=== PATIENT | male | born 1970 | race Caucasian/White ===

== ENCOUNTER 2019-08-08 13:47 | Emergency (ER) | payer OTHER, SELFPAY ==
[2019-08-08 13:50] VITALS: BP 159/88; PULSE 63; RESP 18; TEMP 37.2; O2SAT 97; BMI 25.0
--- NOTE | 2019-08-08 14:54 | ED.EAR ---
HPI - Ear Problem <DEONTE Mario - Last Filed: 08/08/19 19:42> General Chief complaint: Ear Stated complaint: left ear pain/loss of hearing x7 day Time Seen by Provider: 08/08/19 14:27 Source: patient Mode of arrival: ambulatory Limitations: no limitations History of Present Illness HPI Narrative: 49-year-old male presents emergency department today complaining of decreased hearing in his left ear for the past week. He states he has tried 2-3 wax removal kits without success. He states it feels like he is on an airplane and his ears need to pop but they wont. Patient denies any recent illness, sore throat, rhinorrhea, recent travel, ear pain, fevers, chills, chest pain, shortness of breath, abdominal pain, nausea, vomiting, or diarrhea Review of Systems <DEONTE Mario - Last Filed: 08/08/19 19:42> Review of Systems Narrative: Insert ear ROS REVIEW OF SYSTEMS: GENERAL: Denies fever or chills. HENT: No head trauma. Reports hearing loss to left ear, see HPI. EYES: No loss of vision, double vision, eye pain, or irritation. CARDIOVASCULAR: No chest pain or syncope. RESPIRATORY: No shortness of breath or cough. GASTROINTESTINAL: No nausea, vomiting, diarrhea, or constipation. GENITOURINARY: No flank pain or dysuria. MUSCULOSKELETAL: No pain, weakness, or deformities. INTEGUMENTARY: No rash, lesions, or pruritus. NEURO: No numbness, tingling, memory loss, or confusion. PSYCH: No behavior or mood changes. PFSH <DEONTE Mario - Last Filed: 08/08/19 19:42> Medical History No significant past surgical history (Acute) Social History Smoking Status: Current every day smoker Social History Smoking Status: Current every day smoker Exam <DEONTE Mario - Last Filed: 08/08/19 19:42> Initial Vital Signs Initial Vital Signs: Vital Signs Temperature 98.9 F 08/08/19 13:50 Pulse Rate 63 08/08/19 13:50 Respiratory Rate 18 08/08/19 13:50 Blood Pressure 159/88 H 08/08/19 13:50 Pulse Oximetry 97 08/08/19 13:50 PHYSICAL EXAMINATION: GENERAL: Well groomed, alert, and cooperative. Answers questions promptly and appropriately. Vital signs noted. HENT: Normocephalic, atraumatic. Hearing intact. Oral mucosa is pink and moist. Face features symmetrical. Significant amount of wax impaction was present in left ear as well as the right ear. After a curette was used to remove wax, left ear was irrigated. A significant amount of wax was removed-patient reported improved symptoms and increased hearing as well as decreased pressure. TMs were not visualized. EYES: PERRLA, EOMIs, conjunctiva pink, sclera white, no periorbital swelling. No discharge. RESPIRATORY: Normal respiratory rate, trachea midline, airway patent. No stridor, nasal flaring or accessory muscle use. Lungs are clear in all matta without wheeze, rhonchi, or crackles. MUSCULOSKELETAL: Normal gait and coordination. Equal tone and mass bilaterally. SKIN: Warm, dry, soft, appropriate color for ethnicity. NEURO: Alert and Oriented X 3. Good coordination. PSYCH: Appropriate affect and mood. <Nicole Ta DO - Last Filed: 08/09/19 19:19> Initial Vital Signs Initial Vital Signs: Vital Signs Temperature 98.9 F 08/08/19 13:50 Pulse Rate 63 08/08/19 13:50 Respiratory Rate 18 08/08/19 13:50 Blood Pressure 159/88 H 08/08/19 13:50 Pulse Oximetry 97 08/08/19 13:50 Course <DEONTE Mario - Last Filed: 08/08/19 19:42> Course Course Narrative: Wax was removed from the patient's ear via curette. Additionally, patient's left ear was irrigated a larger amount of cerumen was removed. Patient reported increased hearing and a decrease in pressure. He states that he still feels a little pressure in his left ear. Follow-up instructions were given. Strict return precautions were also discussed. Vital Signs Vital signs: Vital Signs - 8 hr 08/08/19 13:50 Temperature 98.9 F Pulse Rate 63 Respiratory Rate 18 Blood Pressure 159/88 H Pulse Oximetry 97 <Nicole Ta DO - Last Filed: 08/09/19 19:19> Vital Signs Vital signs: Vital Signs - 8 hr 08/08/19 13:50 Temperature 98.9 F Pulse Rate 63 Respiratory Rate 18 Blood Pressure 159/88 H Pulse Oximetry 97 Medical Decision Making <DEONTE Mario - Last Filed: 08/08/19 19:42> Medical Records Medical records reviewed: Yes I reviewed the patient's medical records. Lab Data Lab results reviewed: Yes I reviewed the patient's lab results. MDM Narrative Medical decision making narrative: The patient most likely has a cerumen impaction due to visualization of cerumen, slightly improved symptoms after our removal of cerumen, lack of pain, and gradual onset of symptoms. I have a very low suspicion for ear infection as patient does not complain of ear pain, reports no prior illness, no recent respiratory illness, no fevers, or other systemic symptoms. TM was not visualized during exam due to wax. Patient was encouraged to follow up, return precautions given. Discharge Plan Departure Patient Disposition: Home Clinical Impression: Impacted ear wax Qualifiers: Laterality: left Qualified Code(s): H61.22 - Impacted cerumen, left ear Discharge Date/Time: 08/08/19 15:58 Instructions: Cerumen Impaction Activity Restrictions/Additional Instructions: Thank you for entrusting me with your care today. As discussed, appears your symptoms are caused by impacted wax. We have removed a large portion of the wax today. Please use [id number] mineral oil drops and a small amount of hydrogen peroxide, place a few drops in your ear two times a day for 5-7 days. Follow up with your primary care provider in the next week for further wax removal. Please return emergency department if you develop severe headaches, chest pain, shortness of breath, fevers, or other concerns.
== END 2019-08-08 15:58 | disposition home or self-care (01) ==
PROVIDERS: Emergency Provider Nurse Practitioner
DX: H61.22 Impacted cerumen, left ear (principal)
CPT/HCPCS: 99282